=== PATIENT | male | born 1995 | race Caucasian/White ===

== ENCOUNTER 2020-01-02 20:17 | Emergency (ER) | payer SELFPAY ==
[2020-01-02 22:03] VITALS: BP 105/73
[2020-01-02] MEDS ORDERED: VALACYCLOVIR HCL 500 MG TABLET PO ONE (22:22)
--- NOTE | 2020-01-02 22:28 | ER Document Report ---
HPI - HPI Patient complains to provider of: Rash Time Seen by Provider: 01/02/20 22:16 Pain Level: Denies Context: 24-year-old male with no previous medical problems presents to the emergency room complaining of a rash to his left lateral abdominal area for the past 4 days. States it itches and torres he denies any new meds any new creams no new foods. No recent travel. No recent antibiotics. States he does shave that area tried using some calamine lotion without relief. States he has had some increased stress lately denies any fevers. No shortness of breath, no difficulty breathing. Associated Symptoms: None Exacerbated by: Denies Relieved by: Denies Similar symptoms previously: No Recently seen / treated by doctor: No - ROS Systems Reviewed and Negative: Yes All other systems reviewed and negative - CONSTITUTIONAL Constitutional: DENIES: Fever, Chills - EENT EENT: DENIES: Sore Throat - CARDIOVASCULAR Cardiovascular: DENIES: Chest pain - RESPIRATORY Respiratory: DENIES: Trouble Breathing, Coughing - GASTROINTESTINAL Gastrointestinal: DENIES: Abdominal Pain, Nausea, Patient vomiting - DERM Skin Color: Erythema Skin Problems: Rash Past Medical History - General Information source: Patient - Social History Smoking Status: Never Smoker Frequency of alcohol use: None Drug Abuse: None Family History: Other - Shingles Patient has suicidal ideation: No Patient has homicidal ideation: No - Immunizations Immunizations up to date: Yes Vertical Provider Document - CONSTITUTIONAL Agree With Documented VS: Yes Exam Limitations: No Limitations General Appearance: Mild Distress - INFECTION CONTROL TRAVEL OUTSIDE OF THE [place] IN LAST 30 DAYS: No - HEENT HEENT: Atraumatic, Normal ENT Exam, Normocephalic. negative: Pharyngeal Exudate, Pharyngeal Tenderness, Pharyngeal Erythema, Tympanic Membrane Red, Tympanic Membrane Bulging - NECK Neck: Normal Inspection, Supple, Thyroid Normal - RESPIRATORY Respiratory: Breath Sounds Normal, No Respiratory Distress, Chest Non-Tender - CARDIOVASCULAR Cardiovascular: No Murmur, Tachycardia - GI/ABDOMEN Gastrointestinal: Abdomen Soft, Abdomen Non-Tender - BACK Back: negative: CVA Tenderness-Right, CVA Tenderness-Left - MUSCULOSKELETAL/EXTREMETIES Musculoskeletal/Extremeties: FROM - NEURO Level of Consciousness: Awake, Alert, Appropriate Motor/Sensory: No Motor Deficit, No Sensory Deficit - DERM Integumentary: Warm, Dry, Rash - Left lateral abdomen with a scattered erythematous vesicular rash that is tender to palpation. Is not warm to touch. There is no active discharge or draining noted. Distant with shingles Course - Re-evaluation Re-evalutation: 01/02/20 22:27 Counseled patient on diagnosis. Take medications as prescribed. Outpatient follow-up with a primary care physician if not improving in 2 to 3 days. On- call physician was provided. Counseled on no contact with other people skin to skin as shingles is contagious. Patient was given strict return to the emergency room guidelines. Return for any new or worsening symptoms. All questions were answered. Patient verbalized understanding and agrees with plan of care. - Vital Signs Vital signs: Temp Pulse Resp BP Pulse Ox 98.8 F 105 H 16 105/73 98 01/02/20 22:01 01/02/20 22:01 01/02/20 22:01 01/02/20 22:01 01/02/20 22:01 Discharge - Discharge Clinical Impression: Shingles Qualifiers: Herpes zoster complications: without complications Qualified Code(s): B02.9 - Zoster without complications Condition: Stable Disposition: HOME, SELF-CARE Instructions: Shingles (PENDING SALE TO [facility]) Additional Instructions: Medications as prescribed. No skin to skin contact. Outpatient follow-up with a primary care physician as discussed if not improving in 2 to 3 days. Return to the emergency room for any new or worsening symptoms. Prescriptions: Prednisone [Deltasone 20 mg Tablet] See Protocol PO DAILY 9 Days #18 tablet Valacyclovir HCl [Valtrex] 1,000 mg PO BID #14 tablet Referrals: ABHI OLIVO MD [ACTIVE STAFF] - Follow up as needed
== END 2020-01-02 22:35 | disposition home or self-care (01) ==
LOC: ER 20:17
DX: B02.9 Zoster without complications (principal)
CPT/HCPCS: 99283